=== PATIENT | female | born 1935 | race Caucasian/White ===

== ENCOUNTER 2025-01-23 07:10 | Day surgery (SDC) | payer OTHER, SELFPAY ==
[2025-01-17 13:29] VITALS: BMI 19.5
[2025-01-17 13:56] LABS: % Basophils 0.5 % (0-2); % Eosinophils 3.1 % (0-6); % Immature Granulocytes 0.5 % (0-0.5); % Lymphocytes 17.2 % (20.5-51.1); % Monocytes 8.7 % (1.7-9.3); Absolute Eosinophils 0.2 10^3/uL (0-0.7); Absolute Lymphocytes 1.1 10^3/uL (1.2-3.4); Absolute Monocytes 0.5 10^3/uL (0.1-0.6); Absolute Neutrophils 4.4 10^3/uL (1.4-6.5); Hematocrit 41.7 % (37.0-47.0); Hemoglobin 13.4 g/dL (12.0-16.0); Mean Corp Hgb Conc. 32.1 g/dL (33.0-37.0); Mean Corpuscular Hgb 30.6 pg (27.0-31.0); Mean Corpuscular Volume 95.2 fL (81.0-99.0); Mean Platelet Volume 8.6 fL (7.4-10.4); Nucleated Red Blood Cells % 0 %; Platelet Count 278 10^3/uL (130-400); Red Blood Cell Count 4.38 10^6/uL (4.20-5.40); Red Cell Dist. Width 14.2 % (11.5-14.5); White Blood Cell Count 6.2 10^3/uL (4.8-10.8)
[2025-01-17 14:15] LABS: ALT (SGPT) 21 U/L (0-35); AST (SGOT) 22 U/L (14-36); Albumin 4.5 g/dl (3.5-5.0); Alkaline Phosphatase 95 U/L (38-126); Blood Urea Nitrogen 28 mg/dl (7-17); Calcium 9.8 mg/dl (8.4-10.2); Carbon Dioxide 27 mmol/L (22-30); Chloride 104 mmol/L (98-107); Estimated Creatinine Clearance 42 ml/min; Glucose 92 mg/dl (70-99); Sodium 138 mmol/L (135-145); Total Bilirubin 0.9 mg/dl (0.2-1.3); Total Protein 6.9 g/dl (6.3-8.2); eGFR > 60.00
[2025-01-23] VITALS (12 sets, daily range): BP systolic 100–146; BP diastolic 48–64
--- NOTE | 2025-01-23 10:45 | ITS.CL.CATH ---
[employer] - Catheterization
Cardiac Catheterization
Procedure Report:
CARDIAC CATHETERIZATION REPORT
Date of Procedure: 01/23/2025
Referring: Bruno Lewis D.O.
Indication: Persistent shortness of breath, known aortic valve disease.
PROCEDURE:
1. Right heart catheterization.
2. Coronary angiography.
3. Left heart catheterization.
4. Aortic valve interrogation.
5. Left ventriculography.
6. Aortography.
A total of 22 minutes of procedural/moderate sedation was utilized. An independent medical office coordinator was present to assist with and help manage the patient's level of consciousness and physiologic status.
ACCESS:
1. 6 [place] right radial artery using a modified Seldinger technique.
2. 5 [place] right antecubital vein using a previously placed IV.
CATHETERS:
1. 5 [place] balloon wedge.
2. 5 [place] JL 5.
3. 5 [place] JR4.
4. 6 [place] Hernan dual-lumen pigtail catheter.
HEMODYNAMIC DATA
Weight (kg): 48.1
AO (s/d/x, mmHg): 123/57/85
LV (s/x, mmHg): 144/10 (A wave to 26)
PCWP (a/v/x, mmHg): 13/11
PA (s/d/x, mmHg): 33//19
RV (s/x, mmHg): 33/6
RA (a/v/x, mmHg):
SVC SvO2 (%): 76.0
IVC SvO2 (%): Not obtained.
RA SvO2 (%): Not obtained.
RV SvO2 (%): Not obtained
PA SvO2 (%): 73.4
SaO2 (%): 93.1
Hbg (g/dL): 13.0
GLEN
CO (L/min): 3.70
CI (L/min/m2): 2.54
Thermodilution
CO (L/min): Not obtained.
CI (L/min/m2): Not obtained.
TPG (mmHg): 8
PVR (Adam Units): 2.16
SVR (dynes*seconds*cm^-5): 1686
AVO2 Diff (Volume %): 3.48
AV gradient (x, mmHg): 20.50
AV area (cm2): 0.89
MV gradient (x, mmHg): Not obtained.
MV area (cm2): Not obtained.
LEFT VENTRICULOGRAPHY: Performed in an REYES projection. Normal size ventricle with normal to hyperdynamic contractility. Left ventricular ejection fraction is estimated at 65-70%. There is no mitral valve regurgitation. There is no obvious
aortic valve insufficiency. 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 The visualized descending aorta appears normal.
AORTOGRAPHY: Performed in an MALIAN projection. There is a large, probably 5+ centimeter aortic root/ascending aortic aneurysm with no evidence of dissection. The aortic arch and thoracic descending aorta appear normal. There is no obvious aortic
valve insufficiency.
CORONARY ANGIOGRAPHY
Dominance: Codominant.
Left Main: Normal size, trifurcating vessel. There is no coronary artery disease.
LAD: Normal size vessel giving rise to several small diagonals before wrapping around the apex. There is a 20% lesion in the origin of the vessel. There are luminal irregularities in the mid vessel.
Ramus: Normal size vessel supplying a significant portion of the anterolateral wall. There is a 30-40% lesion in the origin of the vessel.
Circumflex: Large size, codominant vessel giving rise to a large obtuse marginal followed by a severely tortuous left posterolateral branch then terminating as a partial LPDA. OM1 subsequently bifurcates into an upper and lower branch. There are
luminal irregularities.
RCA: Small size, codominant vessel. A 1.5 mm distal portion of the vessel gives rise to a partial RPDA.
INTERVENTIONS
None.
Closure Device: Vascular band for the right radial artery, manual pressure for the right antecubital vein.
Radiation dose (mGy): 191.0
DAP (cm2.Gy): 18.3691
Fluoroscopy time (minutes): 6.9
CONCLUSIONS:
1. Codominant circulation with a 20% lesion in the ostial LAD, a 30-40% lesion in the origin of the ramus and luminal irregularities in the codominant circumflex.
2. Normal to hyperdynamic left ventricular systolic function with normal regional wall motion. Left ventricular ejection fraction estimated at 65-70%.
3. 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
4. Normal filling pressures (LVEDP = 10 mmHg, PCWP = 11 mmHg at 48.1 kg) with evidence of diastolic dysfunction (A wave to 26 mmHg).
5. Somewhat discrepant findings in regards to her aortic valve disease. Mean gradient is 20.5 mmHg with a calculated aortic valve area of 0.89 cm�. Stroke-volume index is 39.6 mL/m�. She does not fit criteria for NYHA class D4 aortic valve
stenosis given her SVI >35. 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
RECOMMENDATIONS:
1. Expectant management after cardiac catheterization via right radial/antecubital approach.
2. Limited weight bearing on the right wrist for one week.
3. Maintain current therapy. Consider adding SGLT2 inhibitors for potential diastolic dysfunction. No role for diuresis.
4. Stable for outpatient follow-up.
Copy to: Bruno Lewis D.O., Javon Luo D.O.
Wilfredo Luke, DO, FACC, FACP
[2025-01-23] MEDS: NSS 1000 IV (11:15)
== END 2025-01-23 14:50 | disposition home or self-care (01) ==
LOC: CATH 07:10
PROVIDERS: ATTENDING PHYSICIAN Internal Medicine Cardiovascular Disease; FAMILY PHYSICIAN Family Medicine; OTHER PHYSICIAN Internal Medicine Cardiovascular Disease
DX: I35.0 Nonrheumatic aortic (valve) stenosis (principal); I25.10 Atherosclerotic heart disease of native coronary artery without angina pectoris; I10 Essential (primary) hypertension; Z87.891 Personal history of nicotine dependence; I71.21 Aneurysm of the ascending aorta, without rupture; Z90.49 Acquired absence of other specified parts of digestive tract; F41.9 Anxiety disorder, unspecified; F32.A Depression, unspecified; E03.9 Hypothyroidism, unspecified; I49.3 Ventricular premature depolarization; Z79.890 Hormone replacement therapy; Z79.899 Other long term (current) drug therapy; Z88.5 Allergy status to narcotic agent; Z88.2 Allergy status to sulfonamides
CPT/HCPCS: 99152; 36415; 80053; 85025; 93005; 93460; 93567; C1769; C1894; Q9967